=== PATIENT | female | born 1985 | race Caucasian/White ===

== ENCOUNTER 2021-12-24 18:30 | Emergency (ER) | payer MEDICAID ==
[~2021-12-24] VITALS: Ht 167.6 cm; Wt 88.9 kg
[2021-12-24 18:37] VITALS: BP 117/65
--- NOTE | 2021-12-24 18:53 | NUR ---
36 Y/O FEMALE STATES SHE HAS SHARP CHEST PAIN STARTED 2 HOURS AGO AFTER A NAP. PATIENT STATES SHE IS 14 WEEKS , SMOKES CIGARETTES (5 A DAY) AND TAKES METHADONE. PATIENT DENIES ANY COUGH, SHORTNESS OF BREATH, SORE THROAT, NOR ANY OTHER SYMPTOM
--- NOTE | 2021-12-24 19:22 | NUR ---
REPORT RECEIVED FROM JEFRY CONNORS. CONTINUITY OF PT CARE AT THIS TIME.
--- NOTE | 2021-12-24 19:28 | NUR ---
Jerry guerin in [facility] - 12/24/21 at 1928 by MARTHA REPORT RECEIVED FROM JEFRY CONNORS. CONTINUITY OF PT CARE AT THIS TIME.
--- NOTE | 2021-12-24 19:33 | NUR ---
PT LAYING IN BED LOCKED IN LOWEST POSITION. PT DENIES ANY ONGOING CHEST PAIN. DENIES ANY SOB OR OTHER SYMPTOMS AT THIS TIME. PT REPORTS FEELING MUCH BETTER. BREATHING EVEN AND UNLABORED. WILL CONTINUE TO MONITOR. VSS.
[2021-12-24 19:44] LABS: BASOPHILS % (AUTO) 0.4 % (0.0-2.0); EOSINOPHILS # (AUTO) 0.1 K/uL (0-0.4); EOSINOPHILS % (AUTO) 1.5 % (0.0-4.0); HEMOGLOBIN 10.2 g/dL (12.0-16.0); LYMPHOCYTES # (AUTO) 2.6 K/uL (2.5-16.5); LYMPHOCYTES % (AUTO) 29.1 % (20.5-51.1); MEAN CORPUSCULAR HEMOGLOBIN 27 pg (27-31); MEAN CORPUSCULAR HGB CONC 33 g/dL (33-37); MEAN CORPUSCULAR VOLUME 81.4 fL (80-94); MONOCYTES # (AUTO) 0.9 K/uL (0.8-1.0); MONOCYTES % (AUTO) 10.3 % (1.7-9.3); NEUTROPHILS # (AUTO) 5.2 K/uL (1.8-7.7); NEUTROPHILS % (AUTO) 58.7 % (42.2-75.2); PLATELET COUNT (AUTO) 304 K/uL (140-450); RED CELL DISTRIBUTION WIDTH 14.6 % (11.6-13.7); WHITE BLOOD COUNT (AUTO) 8.9 K/uL (4.8-10.8)
[2021-12-24 19:45] LABS: ALBUMIN 2.8 g/dL (3.4-5.0); ANION GAP 7.8 (8-16); CARBON DIOXIDE 26.2 mmol/L (21-32); CREATININE 0.6 mg/dL (0.6-1.3); TOTAL BILIRUBIN 0.1 mg/dL (0.0-1.0)
[2021-12-24 20:17] VITALS: BP 106/52
--- NOTE | 2021-12-24 20:17 | NUR ---
Patient discharged with v/s stable. Written and verbal after care instructions given and explained. Patient verbalized understanding. Ambulatory with steady gait. All questions addressed prior to discharge. Advised to follow up with PMD.
== END 2021-12-24 20:17 | disposition home or self-care (01) ==
LOC: MED 18:30
DX: O26.891 Other specified pregnancy related conditions, first trimester (principal); R07.89 Other chest pain; Z3A.14 14 weeks gestation of pregnancy; Z79.899 Other long term (current) drug therapy
CPT/HCPCS: 36415; 80053; 81025; 83880; 84484; 85025; 85379; 93005; 99284

== ENCOUNTER 2022-10-14 23:40 | Emergency (ER) | payer MEDICAID, OTHER ==
[~2022-10-14] VITALS: Ht 170.2 cm; Wt 89.8 kg
[2022-10-14 23:44] VITALS: BP 134/84
--- NOTE | 2022-10-14 23:50 | NUR ---
Dr. Kent examining patient.
--- NOTE | 2022-10-14 23:58 | NUR ---
Patient taken to bed 11.
[2022-10-15 00:10] LABS: BASOPHILS % (AUTO) 0.6 % (0.0-2.0); EOSINOPHILS # (AUTO) 0.2 K/uL (0-0.4); EOSINOPHILS % (AUTO) 2.3 % (0.0-4.0); HEMOGLOBIN 10.9 g/dL (12.0-16.0); LYMPHOCYTES # (AUTO) 4.1 K/uL (2.5-16.5); MEAN CORPUSCULAR HEMOGLOBIN 25 pg (27-31); MEAN CORPUSCULAR HGB CONC 32 g/dL (33-37); MEAN CORPUSCULAR VOLUME 77.9 fL (80-94); MONOCYTES # (AUTO) 0.7 K/uL (0.8-1.0); MONOCYTES % (AUTO) 9.8 % (1.7-9.3); NEUTROPHILS # (AUTO) 2.3 K/uL (1.8-7.7); NEUTROPHILS % (AUTO) 31.3 % (42.2-75.2); PLATELET COUNT (AUTO) 374 K/uL (140-450); RED BLOOD CELL COUNT(AUTO) 4.36 MIL/uL (4.20-5.40); RED CELL DISTRIBUTION WIDTH 17.9 % (11.6-13.7); WHITE BLOOD COUNT (AUTO) 7.2 K/uL (4.8-10.8)
[2022-10-15] MEDS: MORPHINE SULFATE 4 MG/ML SYR IVP ONE ×2 (00:17→00:55)
--- NOTE | 2022-10-15 00:23 | NUR ---
pt is complaining abdominal pain 10/10 for about 2 hours. Pt said she tried to put the baby to sleep and all of sudden she started havig abd pain.
[2022-10-15 00:29] LABS: ALBUMIN 3.8 g/dL (3.4-5.0); ANION GAP 9.8 (8-16); CARBON DIOXIDE 28.8 mmol/L (21-32); CREATININE 0.9 mg/dL (0.6-1.3); POTASSIUM 3.6 mmol/L (3.5-5.1); TOTAL BILIRUBIN 0.2 mg/dL (0.0-1.0)
--- NOTE | 2022-10-15 01:36 | NUR ---
PT TO CT
[2022-10-15] MEDS: NACL 0.9% 1,000 ML IV ONE ×2 (02:24→04:51)
--- NOTE | 2022-10-15 05:28 | NUR ---
In and out cath, no urine came out, Dr. Kent notified.
--- NOTE | 2022-10-15 05:30 | NUR ---
Dr eugene scan the pt since patient could not produce the urine at this moment.
[2022-10-15 05:46] VITALS: BP 129/80
--- NOTE | 2022-10-15 05:53 | NUR ---
Patient discharged with v/s stable. Written and verbal after care instructions given and explained. Patient verbalized understanding. Ambulatory with steady gait. All questions addressed prior to discharge. Advised to follow up with PMD. Pt left with her belonging.
--- NOTE | 2022-10-15 15:37 | NUR ---
LATE ENTRY---CONFIRMED WITH RN NS INFUSION END TIME IS 0324 10/15/22 Addendum: 10/15/22 at 1538 by JOE SECOND INFUSION COMPLETED AT 0551 10/15/22
== END 2022-10-15 05:37 | disposition home or self-care (01) ==
LOC: MED 23:40
DX: R10.84 Generalized abdominal pain (principal); K43.9 Ventral hernia without obstruction or gangrene; K42.9 Umbilical hernia without obstruction or gangrene; K59.00 Constipation, unspecified; Z98.890 Other specified postprocedural states
CPT/HCPCS: 36415; 74176; 80053; 83605; 83690; 84703; 85025; 96361; 96374; 96376; 99285; J2270; J7030; 99284